=== PATIENT | male | born 2000 | race American Indian/Alaskan Native ===

== ENCOUNTER 2020-08-18 16:13 | Emergency (ER) | payer SELFPAY ==
[2020-08-18 17:34] VITALS: BP 103/56
--- NOTE | 2020-08-18 19:20 | Event Note ---
ED Screening Note Date of service: 08/18/20 Time: 19:18 ED Screening Note: 20-year-old male patient presents emergency department with complaints of painful redness and swelling to the right eye starting yesterday. Patient underwent right eye cataract surgery 3 months ago. Approximately 1 week after his surgery, he sustained blunt trauma to the right eye while playing football. Swelling initially present after the injury resolved spontaneously. There has been no new trauma, fall, or injury to the right eye since the week after his surgery. Endorses blurred vision. General: Awake, appropriately interactive, no acute distress. Eyes: Right eye redness and swelling. Neck: Supple. Full range of motion intact. Cardiovascular: Normal peripheral perfusion. Pulmonary: No respiratory distress. Patient is speaking normally without use of accessory muscles. Skin: No apparent rashes or lesions. Neurological: No facial asymmetry. Speech is clear. Follows commands. Patient is alert and oriented. Musculoskeletal: Moves all four extremities spontaneously with normal range of motion. Psych: Cooperative. Appropriate mood and affect. I have greeted and performed a focused rapid initial assessment of this patient. A comprehensive ED assessment and evaluation of the patient, analysis of all test results, and completion of the medical decision-making process will be conducted by additional ED providers. This initial assessment/diagnostic orders/clinical plan/treatment(s) is/are subject to change based on patients health status, clinical progression and re-assessment. Further treatment and workup at subsequent clinical provider's discretion. Patient/guardian urged not to elope from the ED as their condition may be serious if not clinically assessed and managed.
[2020-08-18] MEDS ORDERED: FLUORESCEIN 1 MG STRIP OP ONE (21:47)
[2020-08-18] MEDS ORDERED: TETRACAINE 0.5% OPHTH SOLN 4ML OU STA (21:47)
--- NOTE | 2020-08-18 21:58 | Emergency Department Report ---
ED Eye Problem HPI - General Chief complaint: Eye Problems Stated complaint: RT EYE RED Time Seen by Provider: 08/18/20 21:38 Source: patient Mode of arrival: Ambulatory Limitations: No Limitations - History of Present Illness Initial comments: 20 year old male presents to ED with c/o right eye redness. Patient states that his symptoms started yesterday. He reports associated soreness to eye, and increased tearing. He denies any matting or crusting. He denies any injury to the eye and he denies any grinding or welding but he states that he does wear contacts. He states that he was prescription contact lenses and you are supposed to be the 30 day wear. He states that he sleeps in them sometimes but tries to change them when they get irritated. He states that he tries to change every week. He denies any worsening blurry vision. He denies any URI symptoms or exposure to pinkeye. He does admit that he had cataract surgery about 3 months ago. chief complaint: eye pain, eye redness -: days(s) (1) - Related Data Previous Rx's Medication Instructions Recorded Last Taken Type Acetaminophen/Codeine 1 tab PO Q6H PRN #20 tab 05/30/14 Unknown Rx [Acetaminophen-Codeine #3 TAB] Ibuprofen [Motrin] 600 mg PO Q8H PRN #40 tablet 05/30/14 Unknown Rx Ciprofloxacin HCl [Ciloxan] 5 ml OP DAILY #1 bottle 08/18/20 Unknown Rx Allergies Allergy/AdvReac Type Severity Reaction Status Date / Time No Known Allergies Allergy Verified 05/30/14 14:15 ED Review of Systems ROS: Stated complaint: RT EYE RED Other details as noted in HPI Comment: All other systems reviewed and negative Constitutional: denies: chills, fever Eyes: eye pain, eye discharge, other (eye redness). denies: vision change ENT: denies: ear pain, throat pain Respiratory: denies: cough, orthopnea, shortness of breath, SOB with exertion, SOB at rest, wheezing Cardiovascular: denies: chest pain, palpitations, dyspnea on exertion, edema, syncope, paroxysmal nocturnal dyspnea Gastrointestinal: denies: abdominal pain, nausea, vomiting, diarrhea, constipation, hematemesis, melena, hematochezia Genitourinary: denies: urgency, dysuria, frequency, hematuria, discharge, testicular pain, testicular mass Musculoskeletal: denies: back pain, joint swelling, arthralgia, myalgia Skin: denies: rash, lesions, change in color, change in hair/nails, pruritus Neurological: denies: headache, weakness, paresthesias Psychiatric: denies: anxiety, depression, auditory hallucinations, visual hallucinations, homicidal thoughts, suicidal thoughts Hematological/Lymphatic: denies: easy bleeding, easy bruising ED Past Medical Hx - Past Medical History Previous Medical History?: No - Surgical History Past Surgical History?: Yes Additional Surgical History: cataract removal - Social History Smoking Status: Never Smoker Substance Use Type: None - Medications Home Medications: Home Medications Medication Instructions Recorded Confirmed Last Taken Type Acetaminophen/Codeine 1 tab PO Q6H PRN #20 tab 05/30/14 Unknown Rx [Acetaminophen-Codeine #3 TAB] Ibuprofen [Motrin] 600 mg PO Q8H PRN #40 tablet 05/30/14 Unknown Rx Ciprofloxacin HCl [Ciloxan] 5 ml OP DAILY #1 bottle 08/18/20 Unknown Rx ED Physical Exam - General Limitations: No Limitations General appearance: alert, in no apparent distress - Head Head exam: Present: atraumatic, normocephalic, normal inspection - Eye Eye exam: Present: PERRL, EOMI, conjunctival injection, other ([place] lamp exam -- what appears to be small corneal ulcer noted about 9 oclock of cornea. ). Absent: scleral icterus, periorbital swelling, periorbital tenderness Pupils: Present: normal accommodation - Expanded Eye Exam Expanded Sclera/Conjunctival: Injection: Right Anterior chamber: Normal Inspection: Bilateral Posterior chamber: Deferred: Bilateral Visual acuity (R) = 20/: 70 Visual acuity (L) = 20/: 70 With correction: No - Neck Neck exam: Present: normal inspection, full ROM - Respiratory Respiratory exam: Absent: respiratory distress - Cardiovascular Cardiovascular Exam: Present: regular rate - Neurological Exam Neurological exam: Present: alert, oriented X3, CN II-XII intact, normal gait - Psychiatric Psychiatric exam: Present: normal affect, normal mood - Skin Skin exam: Present: intact ED Course Vital Signs 08/18/20 08/18/20 17:28 17:34 Temperature 98.3 F Pulse Rate 95 H Respiratory 18 Rate Blood Pressure 103/56 [Right] O2 Sat by Pulse 98 Oximetry ED Medical Decision Making - Medical Decision Making Patient has what appears to be a corneal ulcer with associated conjunctivitis to the right eye on exam. Patient will be started on Ciloxan eyedrops. He was instructed not to wear his contacts and instead wear glasses and he will be given referral to ophthalmology for follow-up. Patient is well-appearing, not toxic and not in any acute distress. Patient vital signs are stable. Discussed diagnosis and treatment plan with patient. He expresses understanding of instructions and agree with plan. Patient stable at time of discharge. Critical care attestation.: If time is entered above; I have spent that time in minutes in the direct care of this critically ill patient, excluding procedure time. ED Disposition Clinical Impression: Corneal ulcer of right eye, Conjunctivitis, right eye Disposition: TO HOME OR SELFCARE Is pt being admited?: No Does the pt Need Aspirin: No Condition: Stable Instructions: Corneal Ulcer, How to Use Eye Drops and Eye Ointments Additional Instructions: Use the Ciloxan ointment as prescribed. I recommend that you do not wear your contacts until your eye is completely healed. Wear your glasses in the meantime. I recommend that you follow-up with the field representatives director listed on your discharge instructions in the next 3 to 5 days for reexamination and to ensure improvement/healing of your eye. Return to the ER if your symptoms changes or worsens in any way. Prescriptions: Ciprofloxacin HCl [Ciloxan] 5 ml OP DAILY #1 bottle Referrals: ANKUSH HICKS MD [Staff Physician] - 3-5 Days Forms: Work/School Release Form(ED) Time of Disposition: 22:15
== END 2020-08-18 22:25 | disposition home or self-care (01) ==
LOC: ED 16:13
DX: H16.001 Unspecified corneal ulcer, right eye (principal); H10.9 Unspecified conjunctivitis; Z98.890 Other specified postprocedural states; Z79.899 Other long term (current) drug therapy
CPT/HCPCS: 99283

== ENCOUNTER 2020-12-09 11:58 | Emergency (ER) | payer SELFPAY ==
--- NOTE | 2020-12-09 12:44 | Emergency Department Report ---
Upper Extremity - [facility] Chief Complaint: Extremity Injury, Upper Stated Complaint: RT HAND INJURY Time Seen by Provider: 12/09/20 12:14 Upper Extremity: Right Hand (Hit drywall) Occurred When: 2 Days Mechanism: Hit with Object Severity: moderate Symptoms: Yes Pain with Movement, Yes Deformity (Fifth meta carpal), Yes Swelling, No Limited Range of Movement, No Numbness, No Weakness, No Bruising/Ecchymosis Other History: 20-year-old -[place] male presents to the emergency room for right hand injury. Patient states that 2 days ago he hit drywall. Patient complains of pain. He states has been taken Tylenol. Reports that his hand is swollen and looks deformed. He denies any past medical history currently takes no medications on a daily basis and denies ever injuring that hand before. Patient has no known drug allergies. ED Review of Systems ROS: Stated complaint: RT HAND INJURY Other details as noted in HPI ED Past Medical Hx - Surgical History Additional Surgical History: cataract removal - Social History Smoking Status: Never Smoker Substance Use Type: None - Medications Home Medications: Home Medications Medication Instructions Recorded Confirmed Last Taken Type Acetaminophen/Codeine 1 tab PO Q6H PRN #20 tab 05/30/14 Unknown Rx [Acetaminophen-Codeine #3 TAB] Ibuprofen [Motrin] 600 mg PO Q8H PRN #40 tablet 05/30/14 Unknown Rx Ciprofloxacin HCl [Ciloxan] 5 ml OP DAILY #1 bottle 08/18/20 Unknown Rx HYDROcodone/APAP 5-325 [[place] 1 each PO Q6HR PRN #12 tablet 12/09/20 Unknown Rx 5/325] Ibuprofen [Motrin 600 MG tab] 600 mg PO Q8H PRN #30 tablet 12/09/20 Unknown Rx Upper Extremity Exam - Exam General: Vital signs noted. No distress. Alert and acting appropriately. Head and Torso: No HEENT Abnormality, No Neck Tenderness, No Chest/Lungs Abnormality, No Abdominal Tenderness, No Back Tenderness Shoulder Exam: Yes Normal Range of Motion in Shoulder, No Shoulder Tenderness, No Clavicle Tenderness, No Shoulder Deformity, No AC Joint Tenderness Arm Exam: No Arm/Humerus Tenderness, No Arm Deformity Elbow: No Elbow Tenderness, No Normal Range of Motion in Elbow, No Elbow Deformity Forearm: No Forearm Tenderness, No Forearm Deformity, No Pain with Pronation, No Pain with Supination Wrist: Yes Normal ROM in Wrist, No Wrist Tenderness, No Wrist Deformity, No Snuffbox Tenderness, No Pain with Axial Thumb Compression Hand: Yes Hand Tenderness, Yes Hand Deformity, Yes Normal ROM in Digit(s), Yes Digit(s) Deformity, Yes Tendon Dysfunction, No Digit Tenderness CMS Exam: No Broken Skin, No Normal Distal Pulses, No Normal Capillary Refill, No Normal Distal Sensation ED Medical Decision Making - Radiology Data Radiology results: report reviewed [facility] [address] [place] [address] XRay Report Signed Patient: BRIGITTE ARRIETA MR#: [id number] [birth year] : 2000 Acct:[id number] Age/Sex: 20 / M ADM Date: 12/09/20 Loc: ED Attending Dr: Ordering Physician: JOANN NUÑEZ Date of Service: 12/09/20 Procedure(s): XR hand 2V RT Accession Number(s): [id number] cc: JOANN NUÑEZ Fluoro Time In Minutes: Right hand-2 views INDICATION: rt hand swelling pain trauma. COMPARISON: None. IMPRESSION: Comminuted mid shaft fracture of the little finger metacarpal with moderate volar angulation of the distal fracture component and considerable surrounding soft tissue swelling. No un derlying DJD or other abnormality. Signer Name: Adriano Sher MD Signed: 12/09/2020 1:05 PM Workstation Name: [id number] Transcribed By: AUDELIA Dictated By: Adriano Sher MD Electronically Authenticated By: Adriano Sher MD Signed Date/Time: 12/09/20 1305 DD/ 1304 TD/TT: Print Cancel - Medical Decision Making 20-year-old -[place] male presents to the emergency room for right hand injury. Patient states that 2 days ago he hit drywall. Patient complains of pain. He states has been taken Tylenol. Reports that his hand is swollen and looks deformed. He denies any past medical history currently takes no medications on a daily basis and denies ever injuring that hand before. Patient has no known drug allergies. X-ray right hand has been ordered. Critical care attestation.: If time is entered above; I have spent that time in minutes in the direct care of this critically ill patient, excluding procedure time. ED Disposition Clinical Impression: Fracture, metacarpal shaft Disposition: 01 HOME / SELF CARE / HOMELESS Is pt being admited?: No Does the pt Need Aspirin: No Condition: Stable Instructions: Metacarpal Fracture, [id number], Cast or Splint Care, Adult Additional Instructions: X-ray shows you have a fracture of your right fifth metacarpal bone. This bone is involved in your hand. You will be placed in a splint pain medication and you need to follow-up with an orthopedic provider. Prescriptions: Ibuprofen [Motrin 600 MG tab] 600 mg PO Q8H PRN #30 tablet PRN Reason: Pain HYDROcodone/APAP 5-325 [[place] 5/325] 1 each PO Q6HR PRN #12 tablet PRN Reason: Pain Referrals: PRIMARY CARE, [Primary Care Provider] - 3-5 Days HANH RIGGINS MD [Staff Physician] - 3-5 Days Forms: Work/School Release Form(ED) Time of Disposition: 13:58
--- NOTE | 2020-12-09 13:09 | XRay Report ---
Right hand-2 views INDICATION: rt hand swelling pain trauma. COMPARISON: None. IMPRESSION: Comminuted mid shaft fracture of the little finger metacarpal with moderate volar angula tion of the distal fracture component and considerable surrounding soft tissue swelling. No underlyin g DJD or other abnormality. Signer Name: Adriano Sher MD Signed: 12/09/2020 1:05 PM Workstation Name: [id number]
[2020-12-09 15:17] VITALS: BP 110/69
== END 2020-12-09 15:11 | disposition home or self-care (01) ==
LOC: ED 11:58
DX: S62.328A Displaced fracture of shaft of other metacarpal bone, initial encounter for closed fracture (principal); W22.01XA Walked into wall, initial encounter; Y93.89 Activity, other specified; Y92.89 Other specified places as the place of occurrence of the external cause; Y99.8 Other external cause status
CPT/HCPCS: 99283